=== PATIENT | female | born 1975 | race Caucasian/White ===

== ENCOUNTER 2016-06-02 19:55 | Emergency (ER) ==
[2016-06-02 19:59] VITALS: BP 152/100; TEMP 98.1; BMI 23.6
[2016-06-02] MEDS ORDERED: TORADOL IM STA (20:15)
--- NOTE | 2016-06-02 20:23 | ED.PDOC ---
General ED Provider: Dr. RICHY BAUMAN Chief Complaint: Chest Wall Injury/Pain Stated Complaint: sharp pain under right breast, side, and scapula when she breaths or coughs. productive cough with white phlegm, running Time Seen by Physician: 20:10 Mode of Arrival: Walk-In Information Source: Patient Exam Limitations: No limitations Nursing and Triage Documentation Reviewed and Agree: Yes Review of Systems - Review Of Systems Constitutional: Reports: No symptoms Eyes: Reports: No symptoms Ears, Nose, Mouth, Throat: Reports: No symptoms Respiratory: Reports: Cough Cardiac: Reports: Chest pain GI: Reports: No symptoms : Reports: No symptoms Musculoskeletal: Reports: No symptoms Skin: Reports: No symptoms Neurological: Reports: No symptoms Endocrine: Reports: No symptoms Hematologic/Lymphatic: Reports: No symptoms All Other Systems: Reviewed and Negative Past Medical History - Past Medical History Endocrine: Reports: Unknown Cardiovascular: Reports: Unknown Respiratory: Reports: Unknown Hematological: Reports: Unknown Gastrointestinal: Reports: Unknown Genitourinary: Reports: Unknown Neuro/Psych: Reports: Unknown Musculoskeletal: Reports: Unknown Cancer: Reports: Unknown Last Menstrual Period: none - Surgical History General Surgical History: Reports: Unknown - Family History Family History: Reports: Unknown - Social History Smoking Status: Current every day smoker Hx Substance Use: No Alcohol Screening: Occasionally Physical Exam - Physical Exam Appearance: Ill-appearing Ill-appearing: Moderate Pain Distress: Moderate Eyes: PREETHI, EOMI, Conjunctiva clear ENT: Ears normal, Nose normal, Oropharynx normal Neck: Supple Respiratory: Airway patent, Breath sounds clear, Breath sounds equal, Respirations nonlabored Cardiovascular: RRR, Pulses normal, No rub, No murmur GI/: Soft, Nontender, No masses, Bowel sounds normal, No Organomegaly Musculoskeletal: Normal strength, ROM intact, No edema, No calf tenderness Skin: Warm, Dry, Normal color Neurological: Sensation intact, Motor intact, Reflexes intact, Cranial nerves intact, Alert, Oriented Psychiatric: Anxious Interpretation - Radiology Interpretation Radiology Interpretation By: ED Physician Radiology Results: Negative Exam Interpreted: CXR - EKG Interpretation Time of EKG #1: 20:34 Rate: Normal Rhythm: Sinus Ectopy: None [place]: NL ST Segment: Normal Critical Care Note - Critical Care Note Total Time (mins): 0 Course - Course Hematology/Chemistry: 06/02/16 20:27 06/02/16 20:27 Orders, Labs, Meds: Lab Review 06/02/16 20:27 WBC 13.47 H RBC 4.60 Hgb 14.9 Hct 43.3 MCV 94.1 MCH 32.4 H MCHC 34.4 RDW Coeff of Pepper 12.4 Plt Count 467 H Immature Gran % (Auto) 0.3 Neut % (Auto) 67.8 Lymph % (Auto) 22.7 [place] % (Auto) 7.1 Eos % (Auto) 1.4 Baso % (Auto) 0.7 Immature Gran # (Auto) 0.0 Neut # 9.1 H Lymph # 3.1 [place] # 1.0 Eos # 0.2 Baso # 0.1 Sodium 140 Potassium 3.8 Chloride 106 Carbon Dioxide 27 Anion Gap 10.8 BUN 10 Creatinine 0.72 Estimated GFR (MDRD) 89.00 BUN/Creatinine Ratio 13.88 Glucose 81 Calcium 9.0 Total Bilirubin 0.37 AST 14 L ALT 11 L Alkaline Phosphatase 84 Total Protein 7.3 Albumin 3.7 Globulin 3.6 Albumin/Globulin Ratio 1.03 Orders Category Date Time Status EKG-(ED ONLY) Stat CARDIO 06/02/16 20:15 Completed CBC W/ AUTO DIFF Stat LAB 06/02/16 20:27 Completed COMPREHENSIVE METABOLIC PANEL Stat LAB 06/02/16 20:27 Completed Ketorolac Tromethamine [Toradol] MEDS 06/02/16 20:15 Discontinued 60 mg IM ONCE STA CHEST, 2 VIEWS PA & LAT Stat RADS 06/02/16 20:16 Completed Medications Discontinued Medications Generic Name Dose Route Start Last Admin Trade Name Freq PRN Reason Stop Dose Admin Ketorolac Tromethamine 60 mg 06/02/16 20:15 06/02/16 20:21 Toradol IM 06/02/16 20:16 60 mg ONCE STA Administration Vital Signs: Temp Pulse Resp BP Pulse Ox 06/02/16 19:56 98.1 F 112 H 18 152/100 H 98 ALEXANDRE Risk Score ALEXANDRE Risk Score: Risk Score Odds of by 30D 0 0.1 (0.1-0.2) 1 0.3 (0.2-0.3) 2 0.4 (0.3-0.5) 3 0.7 (0.6-0.9) 4 1.2 (1.0-1.5) 5 2.2 (1.9-2.6) 6 3.0 (2.5-3.6) 7 4.8 (3.8-6.1) Departure - Departure Time of Disposition: 21:26 Disposition: HOME SELF-CARE Discharge Problem: Chest wall pain, Pleuritic chest pain Instructions: Acute Bronchitis (ED), Pleurisy (ED) Condition: Stable Pt referred to PMD for follow-up: Yes Additional Instructions: Quit smoking Follow up with PCP in 3 days Return if worse Take medications as prescribed. Prescriptions: Hydrocodone/Acetaminophen [[place] 5-325 Tablet] 1 tab PO Q6HR PRN #12 tablet PRN Reason: PAIN Azithromycin [Zithromax] 250 mg PO DIRECTED #6 tablet Methylprednisolone [Medrol Dosepak] 4 mg PO DIRECTED #1 pkg Allergies/Adverse Reactions: Allergies No Known Allergies Allergy (Verified 06/02/16 19:59) Home Medications: Ambulatory Orders Azithromycin [Zithromax] 250 mg PO DIRECTED #6 tablet 06/02/16 Hydrocodone/Acetaminophen [[place] 5-325 Tablet] 1 tab PO Q6HR PRN #12 tablet 10/12 Methylprednisolone [Medrol Dosepak] 4 mg PO DIRECTED #1 pkg 06/02/16 Disposition Discussed With: Patient
[2016-06-02 20:28] LABS: BASOPHILS # (AUTO) 0.1 K/uL (0-0.2); BASOPHILS % (AUTO) 0.7 % (0.0-3.0); EOSINOPHILS # (AUTO) 0.2 K/ul (0.0-0.7); EOSINOPHILS % (AUTO) 1.4 % (0.0-7.0); HEMATOCRIT 43.3 % (37.0-47.0); HEMOGLOBIN 14.9 g/dl (12.0-16.0); IMMATURE GRANULOCYTE % (AUTO) 0.3 % (0.0-5.0); LYMPHOCYTES # (AUTO) 3.1 K/uL (0.60-3.4); LYMPHOCYTES % (AUTO) 22.7 (10.0-50.0); MEAN CORPUSCULAR HEMOGLOBIN 32.4 pg (27.0-31.0); MEAN CORPUSCULAR HGB CONC 34.4 (31.8-35.4); MEAN CORPUSCULAR VOLUME 94.1 fl (81.0-99.0); MONOCYTES % (AUTO) 7.1 (0-10); NEUTROPHILS # (AUTO) 9.1 K/ul (2.0-6.9); NEUTROPHILS % (AUTO) 67.8; PLATELET COUNT 467 10^3/uL (140-440); WHITE BLOOD COUNT 13.47 K/ul (4.6-10.2)
[2016-06-02 20:49] LABS: ALBUMIN 3.7 g/dL (3.4-5.0); ALBUMIN/GLOBULIN RATIO 1.03; ANION GAP 10.8; BILIRUBIN,TOTAL 0.37 mg/dL (0.00-1.20); BUN/CREATININE RATIO 13.88; CREATININE 0.72 mg/dL (0.60-1.30); POTASSIUM 3.8 mmol/L (3.5-5.10); TOTAL PROTEIN 7.3 g/dL (6.4-8.2)
--- NOTE | 2016-06-03 01:50 | DI ---
EXAM: PA and lateral views of the chest. HISTORY: Cough. FINDINGS: The bony structures are unremarkable. The cardiac silhouette and pulmonary vasculature ar e within normal limits. The costophrenic angles are clear. No infiltrate or consolidation. Impression: No acute cardiopulmonary disease.
== END 2016-06-02 21:33 | disposition home or self-care (01) ==
LOC: ED 19:55
DX: R07.81 Pleurodynia (principal); F17.210 Nicotine dependence, cigarettes, uncomplicated
CPT/HCPCS: 36415; 80053; 85025; 93005; 93010; 96372; 99283

== ENCOUNTER 2016-12-08 14:48 | Emergency (ER) ==
[2016-12-08 14:53] VITALS: BP 153/110; TEMP 98.3; BMI 28.3
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
[2016-12-08] MEDS ORDERED: ULTRAM PO STA (15:34)
--- NOTE | 2016-12-08 15:52 | DI ---
EXAM: Three views of the left elbow. History: Left elbow trauma. Findings: No acute fracture or dislocation. No abnormal calcifications or radiopaque foreign bodies . Joint spaces are preserved. Impression: No acute osseous abnormalities.
== END 2016-12-08 16:50 | disposition home or self-care (01) ==
LOC: ED 14:48
DX: S01.01XA Laceration without foreign body of scalp, initial encounter (principal); S51.012A Laceration without foreign body of left elbow, initial encounter; S30.811A Abrasion of abdominal wall, initial encounter; S09.90XA Unspecified injury of head, initial encounter; V19.9XXA Pedal cyclist (driver) (passenger) injured in unspecified traffic accident, initial encounter; F17.210 Nicotine dependence, cigarettes, uncomplicated
CPT/HCPCS: 99283

== ENCOUNTER 2017-05-11 00:09 | Emergency (ER) ==
[2017-05-11 00:24] VITALS: BP 154/100; TEMP 98.9; BMI 27.0
[2017-05-11] MEDS ORDERED: ATIVAN PO STA (00:48)
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
== END 2017-05-11 01:10 | disposition home or self-care (01) ==
LOC: ED 00:09
DX: F41.9 Anxiety disorder, unspecified (principal); F19.10 Other psychoactive substance abuse, uncomplicated; T43.211A Poisoning by selective serotonin and norepinephrine reuptake inhibitors, accidental (unintentional), initial encounter; F17.210 Nicotine dependence, cigarettes, uncomplicated
CPT/HCPCS: 80306; 99283

== ENCOUNTER 2017-05-19 15:59 | Outpatient (CLI) | END 2017-05-19 16:00 | disposition home or self-care (01) | LOC: LAB 15:59 | PROVIDERS: ATTEND Emergency Medicine | DX: R68.89 Other general symptoms and signs (principal); J06.9 Acute upper respiratory infection, unspecified | CPT/HCPCS: 87651; 87804 ==

== ENCOUNTER 2018-01-06 14:17 | Outpatient (CLI) | END 2018-01-06 14:18 | disposition home or self-care (01) | LOC: RHC-LAB 14:17 | PROVIDERS: ATTEND Nurse Practitioner Family | DX: R52 Pain, unspecified (principal) | CPT/HCPCS: 87502; 87651 ==

== ENCOUNTER 2018-06-20 13:35 | Emergency (ER) ==
[2018-06-20 13:35] VITALS: BMI 27.0
[2018-06-20 13:44] VITALS: BP 128/88; TEMP 99
[2018-06-20] MEDS ORDERED: DECADRON 4 MG/ML SDV IM STA (14:23)
--- NOTE | 2018-06-20 14:52 | ED.PDOC ---
General ED Provider: Dr. BRITTNEY STEEN Chief Complaint: Shortness of Air Stated Complaint: inhaled some fumes then started to cough Time Seen by Physician: 13:36 Mode of Arrival: Walk-In Information Source: Patient Exam Limitations: No limitations Primary Care Provider: CUAUHTEMOC LUNA Nursing and Triage Documentation Reviewed and Agree: Yes Does patient meet sepsis criteria?: No System Inflammatory Response Syndrome: Not Applicable Sepsis Protocol: For patient's 13 years and over: Temp is 96.8 and below OR 101 and greater Pulse >90 BPM Resp >20/minute Acutely Altered Mental Status Are patient's symptoms suggestive of a new infection, such as: -Pneumonia -Skin, Soft Tissue -Endocarditis -UTI -Bone, Joint Infection -Implantable Device -Acute Abdominal Infection -Wound Infection -Meningitis -Blood Stream Catheter Infection -Unknown Respiratory Complaint Exam - Respiratory Complaint/Exam Onset/Duration: 1 hr ago Symptoms Are: Resolved Initial Severity: Mild Current Severity: None Location: Throat, Chest Character: Reports: Non-productive cough Aggravating: Reports: None Alleviating: Reports: None Associated Signs and Symptoms: Reports: URI, Nasal congestion. Denies: Rapid breathing, Dyspnea, Fever, Chills, Chest pain, Pleuritic chest pain, Wheezing, Hemoptysis, Dizziness, Calf pain, Calf swelling, Edema, Hoarseness, Sinus discomfort, Vomiting, Sore throat, Weight loss, Decreased oral intake, Increased thirst, Increased appetite, Increased urination Related History: Reports: Similar episode History of Healthcare-Acquired Pneumonia: No Related Surgical History: Reports: None Pulmonary Embolism Risk Factors: None Cardiac Risk Factors: Reports: None Pseudomonas Risk Factors: Reports: None Tuberculosis Risk Factors: Reports: None Status Asthmaticus Risk Factors: Reports: None Home Oxygen Use: No Recent Stress Test: No Recent Echo/LV Function: No Current Antibiotic Use: No Current Asthma Medication Use: No Respiratory Distress: None Inadequate Respiratory Effort: No Dysphagia Present: No Stridor Present: No JVD Present: No Accessory Muscle Use: No Retractions: Not Present Diminished Breath Sounds: No Sinus Tenderness: None Grunting Respirations: No Kussmaul Respirations: No Differential Diagnoses: Pneumonia, Bronchitis, Influenza Non-Traumatic Chest Pain Syncope: EKG Performed Review of Systems - Review Of Systems Constitutional: Reports: No symptoms Eyes: Reports: No symptoms Ears, Nose, Mouth, Throat: Reports: No symptoms Respiratory: Reports: Cough, Short of air Cardiac: Reports: No symptoms GI: Reports: No symptoms : Reports: No symptoms Musculoskeletal: Reports: No symptoms Skin: Reports: No symptoms Neurological: Reports: No symptoms Endocrine: Reports: No symptoms Hematologic/Lymphatic: Reports: No symptoms All Other Systems: Reviewed and Negative Past Medical History - Past Medical History Previously Healthy: Yes Endocrine: Reports: None Cardiovascular: Reports: None Respiratory: Reports: None Hematological: Reports: None Gastrointestinal: Reports: Other (old record esphageal stricture) Genitourinary: Reports: None Neuro/Psych: Reports: None Musculoskeletal: Reports: None Cancer: Reports: None Last Menstrual Period: Hysterectomy Other Pertinent Past Medical History: Tubal ligation, Orthopedic (Left knee surgery ), Other (Hiatal hernia ) - Surgical History General Surgical History: Reports: Tubal ligation (Tubal ligation (old record)) , Orthopedic (Orthopedic (Left knee surgery )(old record)), Hernia Repair ( Other (Hiatal hernia )(old record)) - Family History Family History: Reports: Unknown - Social History Smoking Status: Current every day smoker Hx Substance Use: No Alcohol Screening: Occasionally - Immunizations Tetanus Shot up to Date: Yes Physical Exam - Physical Exam Appearance: Well-appearing, No pain distress, Well-nourished Eyes: PREETHI, EOMI, Conjunctiva clear ENT: Ears normal, Nose normal, Oropharynx normal Respiratory: Airway patent, Breath sounds clear, Breath sounds equal, Respirations nonlabored Cardiovascular: RRR, Pulses normal, No rub, No murmur GI/: Soft, Nontender, No masses, Bowel sounds normal, No Organomegaly Musculoskeletal: Normal strength, ROM intact, No edema, No calf tenderness Skin: Warm, Dry, Normal color Neurological: Sensation intact, Motor intact, Reflexes intact, Cranial nerves intact, Alert, Oriented Psychiatric: Affect appropriate, Mood appropriate Interpretation - Radiology Interpretation Radiology Interpretation By: Radiologist Radiology Results: No acute changes Critical Care Note - Critical Care Note Total Time (mins): 0 Course - Course Orders, Labs, Meds: Orders Category Date Time Status Dexamethasone 4 mg/ml Inj [Decadron 4 mg/ml Sdv] MEDS 06/20/18 14:23 Discontinued 4 mg IM ONCE STA CHEST, 2 VIEWS PA & LAT Stat RADS 06/20/18 14:23 Completed Medications Discontinued Medications Generic Name Dose Route Start Last Admin Trade Name Freq PRN Reason Stop Dose Admin Dexamethasone Sodium Phosphate 4 mg 06/20/18 14:23 06/20/18 14:38 Decadron 4 Mg/Ml Sdv IM 06/20/18 14:24 4 mg ONCE STA Administration Vital Signs: Temp Pulse Resp BP Pulse Ox 06/20/18 13:35 99.0 F 88 18 128/88 97 Departure - Departure Time of Disposition: 14:52 Disposition: HOME SELF-CARE Discharge Problem: Cough Instructions: Acute Cough (ED) Condition: Good Pt referred to PMD for follow-up: Yes IPMP verified?: No Additional Instructions: Please call your Family Physician as soon as possible to schedule a follow-up appointment. Allergies/Adverse Reactions: Allergies No Known Allergies Allergy (Verified 06/20/18 13:56) Home Medications: Ambulatory Orders Duloxetine HCl [Cymbalta] 30 mg PO DAILY 05/11/17 Transfer Form Completed: No Disposition Discussed With: Patient
--- NOTE | 2018-06-20 15:09 | DI ---
Exam: Chest two-view HISTORY: Cough. Comparison: 08/02/2016. FINDINGS: Two views of the chest demonstrate moderately expanded lungs with no evidence of pneumonia or edema. The heart is normal in size and configuration. The pulmonary vasculature is not congeste d. The skeletal structures are intact. IMPRESSION: No acute cardiopulmonary disease.
== END 2018-06-20 15:29 | disposition home or self-care (01) ==
LOC: ED 13:35
DX: R05 Cough (principal); R06.02 Shortness of breath; T59.91XA Toxic effect of unspecified gases, fumes and vapors, accidental (unintentional), initial encounter; F17.210 Nicotine dependence, cigarettes, uncomplicated
CPT/HCPCS: 96372; 99282

== ENCOUNTER 2018-07-17 16:37 | Emergency (ER) ==
[2018-07-17 16:43] VITALS: BP 152/106; TEMP 98.3; BMI 26.9
--- NOTE | 2018-07-17 17:21 | CT ---
EXAM: CT scan of the chest without contrast CLINICAL HISTORY: Chest wall injury, pain TECHNIQUE: Helical imaging of the chest was performed without contrast. 5 mm thin axial images and coronal reconstructions and coronal reconstructions were provided for interpretation. Comparison to 10/2012. FINDINGS: The heart is normal size. No mediastinal abnormalities are seen. The lungs are clear. T he osseous structures appear within normal limits. IMPRESSION: No acute traumatic abnormalities are seen within the thorax.
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
== END 2018-07-17 17:30 | disposition home or self-care (01) ==
LOC: ED 16:37
DX: R07.89 Other chest pain (principal); F17.210 Nicotine dependence, cigarettes, uncomplicated; W50.0XXA Accidental hit or strike by another person, initial encounter
CPT/HCPCS: 99282

== ENCOUNTER 2018-08-25 17:53 | Emergency (ER) ==
[2018-08-25 17:58] VITALS: BP 110/81; TEMP 98.8; BMI 26.4
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
--- NOTE | 2018-08-25 19:08 | CT ---
EXAM: CT of the left foot without contrast History: Left ankle pain and trauma. Technique: Multiplanar CT images through the left foot and ankle were obtained without the administr ation of IV contrast Findings: No acute fracture or dislocation. Mild polyarticular joint space narrowing. There is subc utaneous edema along the dorsal lateral aspect of the foot and ankle. No evidence for osteomyelitis. No radiopaque foreign bodies. Impression: 1. No acute osseous abnormality. 2. Subcutaneous edema/cellulitis along the dorsal lateral aspect of the foot and ankle.
[2018-08-25] MEDS ORDERED: TORADOL IM STA (19:27)
== END 2018-08-25 20:20 | disposition left against medical advice (07) ==
LOC: ED 17:53
DX: M25.572 Pain in left ankle and joints of left foot (principal); X50.1XXA Overexertion from prolonged static or awkward postures, initial encounter; F17.210 Nicotine dependence, cigarettes, uncomplicated
CPT/HCPCS: 99282